=== PATIENT | female | born 1995 | race Asian ===

== ENCOUNTER → 2017-06-10 | Outpatient (CLI) | payer OTHER ==
--- NOTE | 2017-06-10 15:14 | MAMMOGRAPHY REPORT ---
ULTRASOUND OF BOTH BREASTS: 06/10/2017 CLINICAL HISTORY: 22-year-old woman presents after she noticed a lump and pink-tamy nipple discharge o f the left breast. The patient reports she ceased lactating on 04/03/2017 but she still notices occa sional milky discharge. The lump she reports is the size of a gr of rice and located in the lower in ner subareolar left breast. She reports she only noticed the nipple discharge after squeezing the ti ny lump. The patient reports an additional lump in the right axilla which became more prominent when she was p regnant, and she had a prior ultrasound at the [facility]. These images will be requ ested. COMPARISON: No prior exams are currently available for comparison purposes. FINDINGS: Targeted ultrasound was performed over the Green of rice-sized lump in the 8:00 periareola r/retroareolar left breast, throughout the remainder of the periareolar and retroareolar left breast given the history of pinkish nipple discharge, and also in the right axilla in the area of lump descr ibed by the patient. In the 8:00 retroareolar/periareolar left breast, there is a subdermal oval par allel circumscribed hypoechoic solid versus cystic mass measuring 4.5 x 2.7 x 5.0 mm. A second simil ar appearing oval parallel circumscribed hypoechoic solid versus cystic mass is identified in the sub dermal 4:00 periareolar/retroareolar left breast measuring 6.5 x 2.1 x 4.7 mm. Numerous prominent mi lk ducts are identified, without definite evidence of an intraductal mass. These tiny subdermal mass es could represent complicated cysts, benign masses such as fibroadenomas or given the recent cessati on of , galactoceles. They do not appear intraductal in nature. There is no evidence of a periareolar drainable fluid collection to suggest abscess. Additional targeted ultrasound was performed in the right axilla in the area of lump described by the patient. There is a small mixed echogenicity hypoechoic and anechoic solid appearing mass measuring 8.3 x 2.9 x 7.1 mm. The patient reports this area was previously ultrasounded at the [facility], during her and they considered benign. I would like to compare to the prior outside ultrasound images to see if there has been any change. It could represent focal lactational change with an accessory breast tissue or a fibroadenoma. It does not have the appearance of a drain able fluid collection or morphologically abnormal lymph node. IMPRESSION: ACR-BI-RADS CATEGORY 3: PROBABLY BENIGN - FOLLOW-UP RECOMMENDED 1. There are 2 similar appearing, tiny subdermal oval circumscribed solid versus cystic masses in th e left subareolar breast located in the approximate 4:00 and 8:00 axes. No definite intraductal mass or drainable fluid collection is identified. It does not seem likely that these small subdermal mass es could be a cause of the patient's nipple discharge, however, the mass identified in the 8:00 peria reolar/retroareolar breast may correlate with the small palpable lump pointed out by the patient. Gi jose francisco the benign sonographic appearance, and that the patient reports she has not been able to elicit h er nipple discharge in the past 4 days, these findings are probably benign. 2. If the patient is unable to elicit the pinkish nipple discharge again, would recommend follow-up targeted ultrasound to ensure stability of these benign-appearing masses in 2 months (prior to the pa tient leaving the country on August 22). 3. If the nipple discharge returns, cytologic analysis of the fluid is recommended and could conside r fine-needle aspiration versus core needle biopsy of these masses. 4. I am requesting an outside ultrasound of the right axilla from the [facility] to assess if the lesion identified on current ultrasound is stable comparing to the prior outside exam a nd then further recommendations will be made regarding the right axilla. We also tentatively set up a follow-up right axillary ultrasound in 2 months to ensure stability. These results and recommendations were discussed with the patient at the time of the exam. Chiquis Flynn M.D. ay/:06/10/2017 14:55:13 Attending Technologist: Jud AUGUSTIN)(Kavya), [facility] Entry Processor: Dr. Chiquis Flynn, [facility] letter sent: Follow Up Recommended 3 BI-RADS Code: ACR-BI-RADS Category 3: Probably Benign
== END | disposition home or self-care (01) ==
LOC: C.MAMM 13:13
PROVIDERS: ATTEND Physician Assistant Medical
DX: N63.42 Unspecified lump in left breast, subareolar (principal); N64.52 Nipple discharge

== ENCOUNTER → 2017-08-12 | Outpatient (CLI) | payer OTHER ==
--- NOTE | 2017-08-13 14:44 | MAMMOGRAPHY REPORT ---
ULTRASOUND OF BOTH BREASTS: 08/12/2017 CLINICAL HISTORY: 22-year-old woman presents for a very short follow-up targeted ultrasound in the le ft breast 4:00 and 8:00 axes as well as a palpable lump in the right axilla. She does not report any new episodes of pinkish or bloody nipple discharge. COMPARISON: Comparison is made to exam dated: 06/10/2017 ultrasound - [facility]. FINDINGS: Targeted ultrasound was performed in the 4:00 and 8:00 retroareolar axes of the left breast and also in the area of palpable lump within the right axilla. In the 4:00 retroareolar left breast , there is a subdermal oval parallel circumscribed isoechoic to slightly hypoechoic solid-appearing m ass measuring 6.0 x 1.9 x 5.3 mm, previously measured 6.5 x 2.1 x 4.7 mm, unchanged. A second simila r-appearing circumscribed oval hypoechoic solid-appearing mass in the 8:00 retroareolar left breast h as decreased in size, currently measuring 2.8 x 2.0 x 2.5 mm, previously measured 4.5 x 2.7 x 5.0 mm. The interval decrease in size confirms benignity and no further close follow-up is needed at this t claire. The palpable lump in the right axilla was also reevaluated and again noted is an oval parallel circum scribed mixed echogenicity isoechoic and anechoic mass measuring 8.5 x 3.0 by approximately 3.9 mm. This previously measured 8.3 x 2.9 x 7.1 mm, also considered unchanged. IMPRESSION: ACR-BI-RADS CATEGORY 3: PROBABLY BENIGN - FOLLOW-UP RECOMMENDED 1. A benign-appearing subdermal circumscribed oval mass in the 4:00 retroareolar left breast is stab le comparing to the prior ultrasound and is most likely benign. Another six-month follow-up targeted ultrasound is recommended to ensure longer stability. This is likely not the cause of the patient's prior nipple discharge. 2. A benign-appearing mass in the 8:00 retroareolar subdermal left breast is decreased in size, conf irming benignity. 3. A palpable lump in the right axilla also appears stable on ultrasound, given slight differences i n measuring technique. Continued clinical monitoring is recommended and if this increases in size ba sed on palpation, fine-needle aspiration may be needed. Otherwise would recommend a short interval f ollow-up targeted right axillary ultrasound to ensure stability in 6 months. These results and recommendations were discussed with the patient at the time of the exam. Chiquis Flynn M.D. ay/:08/12/2017 15:57:48 Greens Cutter: Dr. Chiquis Flynn, [facility] letter sent: Follow Up Recommended 3 BI-RADS Code: ACR-BI-RADS Category 3: Probably Benign
== END | disposition home or self-care (01) ==
LOC: C.MAMM 13:23
PROVIDERS: ATTEND Physician Assistant Medical
DX: N63.23 Unspecified lump in the left breast, lower outer quadrant (principal); N63.24 Unspecified lump in the left breast, lower inner quadrant